=== PATIENT | female | born 1965 | race Caucasian/White ===

== ENCOUNTER → 2016-08-16 | Outpatient (CLI) | payer OTHER ==
[~2016-08-16] MED LIST: AMITRIPTYLINE100 MG PO; ASPIRIN CHEWABL81 MG PO; CRESTOR20 MG PO; DILTIAZEM 24HR120 MG PO; DULOXETINE HCL60 MG PO; GLUCOPHAGE 500500 MG PO; ISOSORBIDE MONO60 MG PO; KENALOG CREAM 015 GM EXT; LYRICA75 MG PO; METHIMAZOLE10 MG PO; MONTELUKAST SOD10 MG PO; NEXIUM40 MG PO; NITROSTAT 0.40.4 MG SL; RANEXA1000 MG PO; RANITIDINE HCL300 M1 PO; SYMBICORT 16010.2 GM INH; TENORMIN 25 MG25 MG PO; VENTOLIN HFA 66.7 GM INH; VITAMIN D1000 UNIT PO; VITAMIN D250000 UNIT PO; VOLTAREN EC 5050 MG PO; XARELTO20 MG PO; XYZAL5 MG PO
[2016-08-16 11:25] LABS: HEMOGLOBIN 12.8 gm/dl (12.3-15.3); RED BLOOD COUNT 3.94 M/UL (4.00-5.10); WHITE BLOOD COUNT 7.3 K/UL (4.5-11.0)
== END ==
LOC: LAB 10:35
PROVIDERS: Internal Medicine
DX: E05.00 Thyrotoxicosis with diffuse goiter without thyrotoxic crisis or storm (principal)
CPT/HCPCS: 36415; 80076; 84439; 84443; 84480; 85025

== ENCOUNTER → 2016-10-05 | Outpatient (CLI) | payer OTHER | LOC: CT 09-30 08:30 | DX: M46.1 Sacroiliitis, not elsewhere classified (principal) | CPT/HCPCS: 72192 ==

== ENCOUNTER → 2016-11-25 | Outpatient (CLI) | payer OTHER ==
[2016-11-25 11:08] LABS: HEMOGLOBIN 12.2 gm/dl (12.3-15.3); RED BLOOD COUNT 3.75 M/UL (4.00-5.10); WHITE BLOOD COUNT 7.5 K/UL (4.5-11.0)
[2016-11-25 11:22] LABS: BUN/CREATININE RATIO 13 (0-10)
== END ==
LOC: LAB 10:27
PROVIDERS: Internal Medicine Cardiovascular Disease
DX: I25.10 Atherosclerotic heart disease of native coronary artery without angina pectoris (principal); I48.92 Unspecified atrial flutter; R00.2 Palpitations
CPT/HCPCS: 36415; 71020; 80048; 85025

== ENCOUNTER → 2016-11-25 | Outpatient (CLI) | payer OTHER | LOC: HEART 5 11:16 | DX: I48.92 Unspecified atrial flutter (principal); R07.9 Chest pain, unspecified; R06.00 Dyspnea, unspecified; R53.83 Other fatigue; R42 Dizziness and giddiness; Z95.0 Presence of cardiac pacemaker; I08.1 Rheumatic disorders of both mitral and tricuspid valves; I27.2 Other secondary pulmonary hypertension | CPT/HCPCS: 93306 ==

== ENCOUNTER → 2017-02-21 | Outpatient (CLI) | payer OTHER ==
[2017-02-21 13:49] LABS: HEMOGLOBIN 11.3 gm/dl (12.3-15.3); RED BLOOD COUNT 3.55 M/UL (4.00-5.10); WHITE BLOOD COUNT 10.3 K/UL (4.5-11.0)
== END ==
LOC: LAB 12:15
PROVIDERS: Internal Medicine
DX: E05.00 Thyrotoxicosis with diffuse goiter without thyrotoxic crisis or storm (principal)
CPT/HCPCS: 36415; 80076; 83520; 84439; 84443; 84480; 85025

== ENCOUNTER → 2020-09-30 | Outpatient (CLI) | payer OTHER ==
[2020-09-30 16:59] LABS: HEMOGLOBIN 10.8 gm/dl (12.3-15.3); RED BLOOD COUNT 3.68 M/UL (4.00-5.10); WHITE BLOOD COUNT 6.4 K/UL (4.5-11.0)
== END ==
LOC: LAB 14:13
PROVIDERS: Internal Medicine
DX: E05.00 Thyrotoxicosis with diffuse goiter without thyrotoxic crisis or storm (principal)
CPT/HCPCS: 36415; 80076; 83520; 84439; 84443; 84481; 85025

== ENCOUNTER → 2020-12-31 | Outpatient (CLI) | payer OTHER | LOC: EXRD 15:30 | DX: M79.605 Pain in left leg (principal); M79.604 Pain in right leg | CPT/HCPCS: 93970 ==

== ENCOUNTER → 2021-03-24 | Outpatient (CLI) | payer OTHER | LOC: KOH-I 08:15 | DX: R51.9 Headache, unspecified (principal); M50.321 Other cervical disc degeneration at C4-C5 level | CPT/HCPCS: 70450; 72125 ==

== ENCOUNTER → 2021-03-31 | Outpatient (CLI) | payer OTHER | LOC: MAMO 08:10 | DX: Z12.31 Encounter for screening mammogram for malignant neoplasm of breast (principal); E05.00 Thyrotoxicosis with diffuse goiter without thyrotoxic crisis or storm | CPT/HCPCS: 36415; 77063; 77067; 83520; 84439; 84443; 84481 ==

== ENCOUNTER → 2021-08-31 | Outpatient (CLI) | payer OTHER | LOC: EXRD 07:46 | DX: R10.11 Right upper quadrant pain (principal) | CPT/HCPCS: 76705 ==